=== PATIENT | male | born 2000 | race African-American/Black ===

== ENCOUNTER 2019-05-18 12:08 | Emergency (ER) | payer SELFPAY ==
[~2019-05-18] VITALS: Ht 185.4 cm; Wt 68.0 kg
[2019-05-18 12:08] VITALS: BP 115/72
[2019-05-18] MEDS: LIDOCAINE 1% Multi-Dose 20 ML VIAL. INJ ONE ×2 (12:59→13:31)
--- NOTE | 2019-05-18 13:43 | PHYS DOC ---
Past Medical History Past Medical History: No Pertinent History Past Surgical History: No Surgical History Alcohol Use: None Drug Use: None Adult General Chief Complaint Chief Complaint: LACERATION/AVULSION HPI HPI Patient is a 18 year old Male who presents with was throwing trash into a dumpster when the metal lid on the dumpster cut his right outer forearm. Patient states he is up-to-date on his tetanus shot as it was 2 years ago. Review of Systems Review of Systems Constitutional: Denies fever or chills [] Eyes: Denies change in visual acuity, redness, or eye pain [] HENT: Denies nasal congestion or sore throat [] Respiratory: Denies cough or shortness of breath [] Cardiovascular: No additional information not addressed in HPI [] GI: Denies abdominal pain, nausea, vomiting, bloody stools or diarrhea [] : Denies dysuria or hematuria [] Musculoskeletal: Denies back pain or joint pain [] Integument: Laceration to Right forearm. Denies rash or skin lesions [] Neurologic: Denies headache, focal weakness or sensory changes [] Endocrine: Denies polyuria or polydipsia [] All other systems were reviewed and found to be within normal limits, except as documented in this note. Current Medications Current Medications Current Medications Medications (Trade) Dose Ordered Sig/[facility] Start Time Stop Time Status Last Admin Dose Admin Lidocaine HCl (Lidocaine 1% 20ml Vial) 20 ml 1X ONCE 05/18/19 12:45 05/18/19 12:46 DC Allergies Allergies Allergies Coded Allergies Type Severity Reaction Last Updated Verified No Known Drug Allergies 05/18/19 No Physical Exam Physical Exam Constitutional: Well developed, well nourished, no acute distress, non-toxic appearance. [] HENT: Normocephalic, atraumatic, bilateral external ears normal, oropharynx moist, no oral exudates, nose normal. [] Eyes: PERRLA, EOMI, conjunctiva normal, no discharge. [] Neck: Normal range of motion, no tenderness, supple, no stridor. [] Cardiovascular:Heart rate regular rhythm, no murmur [] Lungs & Thorax: Bilateral breath sounds clear to auscultation [] Abdomen: Bowel sounds normal, soft, no tenderness, no masses, no pulsatile masses. [] Skin: Right forearm laceration. Warm, dry, no erythema, no rash. [] Back: No tenderness, no CVA tenderness. [] Extremities: No tenderness, no cyanosis, no clubbing, ROM intact, no edema. [] Neurologic: Alert and oriented X 3, normal motor function, normal sensory function, no focal deficits noted. [] Psychologic: Affect normal, judgement normal, mood normal. [] Current Patient Data Vital Signs Vital Signs Date Time Temp Pulse Resp B/P (MAP) Pulse Ox O2 Delivery O2 Flow Rate FiO2 05/18/19 12:08 98.7 71 17 115/72 (86) 99 Room Air 98.7 EKG EKG [] Radiology/Procedures Radiology/Procedures [] Course & Med Decision Making Course & Med Decision Making Patient is a 18 year old Male who presents with was throwing trash into a dumpster when the metal lid on the dumpster cut his right outer forearm. Patient states he is up-to-date on his tetanus shot as it was 2 years ago. Alert and oriented. Ambulatory. Laceration is 4 cm long with to 2cm of the laceration being gaping at 1 cm wide. Bleeding is controlled. There is no deep tissue muscle, joint or tendon injury. Patient has less than 3 second cap refill. Radial pulses strong and palpable. Skin is pink warm and dry. Patient has intact range of motion in the right wrist and fingers. When gripping in talking to the patient about suturing the patient is refusing sutures stating "I don't want stitches, it will hurt to bad". It is explained to patient that the initial being numbed with lidocaine prior to suturing the patient still refuses and states he will just keep it covered and clean. Patient is informed that there is a high infection risk due to not having the wound sutured. Patient states he is willing to take the risk and he will keep the wound clean and covered. Patient is educated on signs and symptoms of infection and when he should return to the emergency room, such as redness, increased pain, swelling, drainage, red streaking, fever. Patient states that he understands the signs and symptoms of infection. Patient did allow me to clean wound with saline and chlorhexidine. No foreign bodies seen with cleansing, flushing and exploration of the wound. Wound is dressed and patient signed AMA paper. Ashley Disclaimer Ashley Disclaimer This electronic medical record was generated, in whole or in part, using a voice recognition dictation system. Departure Departure Impression: Primary Impression: Laceration Disposition: 07 AGAINST MEDICAL ADVICE Condition: STABLE Referrals: NO PCP (PCP) KALPESH MALDONADO [employer] MANAGER May 18, 2019 13:43
== END 2019-05-18 13:37 | disposition left against medical advice (07) ==
LOC: ER 12:08
DX: S51.811A Laceration without foreign body of right forearm, initial encounter (principal); W26.8XXA Contact with other sharp object(s), not elsewhere classified, initial encounter; Y93.89 Activity, other specified; Y92.89 Other specified places as the place of occurrence of the external cause; Y99.8 Other external cause status
CPT/HCPCS: 99283